=== PATIENT | female | born 1975 | race Caucasian/White ===

== ENCOUNTER 2020-07-28 20:31 | Emergency (ER) | payer OTHER, SELFPAY ==
--- NOTE | ~2020-07-28 | CT_ITS ---
EXAMINATION: CT abdomen pelvis w con DATE: 07/28/2020 21:53 INDICATION: Lower abdomen pain. TECHNIQUE: Computed tomography (CT) of the abdomen and pelvis was performed with 100 cc Omnipaque 350 intravenous contrast. The dose-length product was 711.82 mGy-cm. Automated exposure control and iterative reconstruction technique were employed. COMPARISON: No prior studies for comparison. FINDINGS: Lung bases are unremarkable. Heart size normal. Small hiatal hernia. No significant pleural or pericardial effusion. No lymphadenopathy. There is a complex heterogeneously enhancing exophytic right renal mass measuring 3.3 cm maximum dime nsion. There are subcentimeter hypodensities in the right kidney, most likely benign cysts. Left kidn ey within normal limits. The liver, spleen, pancreas, and left adrenal gland are unremarkable. There is a heterogeneous 3 cm r ight adrenal mass. No free air or free fluid. No osteolytic or osteoblastic lesions. There is asymmet nicole soft tissue in the left breast which is incompletely visualized. IMPRESSION: 1. Complex heterogeneously enhancing right renal mass measuring 3.3 cm, compatible with renal cell ca rcinoma until proven otherwise. 2: 13 cm right adrenal mass which may represent an atypical adenoma or metastatic disease. Recommend correlation with MRI. 3: Asymmetric soft tissue in the left breast, only partially visualized. Correlation with diagnostic mammogram and possible ultrasound recommended. Reviewed, dictated and finalized at location A. RGROUND FOREMAN IMPRESSION: 1. Complex heterogeneously enhancing right renal mass measuring 3.3 cm, compati ble with renal cell carcinoma until proven otherwise. 2: 13 cm right adrenal mass which may represent an atypical adenoma or metasta tic disease. Recommend correlation with MRI. 3: Asymmetric soft tissue in the left breast, only partially visualized. Corre lation with diagnostic mammogram and possible ultrasound recommended.
[2020-07-28 20:34] VITALS: BP 138/81; PULSE 88; RESP 16; TEMP 36.3; O2SAT 100
[2020-07-28 20:47] VITALS: BP 116/72; PULSE 97; RESP 16; O2SAT 98
--- NOTE | 2020-07-28 20:52 | ED.ABDPAIN ---
HPI - Abdominal Pain General Chief Complaint: Abdominal Pain Stated Complaint: Lower abd pain Time Seen by Provider: 07/28/20 20:38 Source: patient Mode of arrival: ambulatory Limitations: no limitations History of Present Illness HPI narrative: Patient is a 45-year-old female complaining of lower abdominal pain, 2 out of 10, sharp, nonradiating started 2 days ago. Patient denies any chest pain, shortness of breath, nausea, vomiting, diarrhea, urinary symptoms, fever or chills. Related Data Allergies Allergy/AdvReac Type Severity Reaction Status Date / Time erythromycin base Allergy Mild Vomiting Verified 07/28/20 20:33 Review of Systems Review of Systems: All systems reviewed & are unremarkable except as noted in HPI and below Constitutional: Constitutional: Denies body ache(s), Denies chills, Denies excessive sweating, Denies fatigue, Denies fever(s), Denies headache(s), Denies lethargy, Denies malaise, Denies weakness and Denies weight loss Eyes: Eyes: Denies blurry vision, Denies change in vision and Denies loss of vision ENT: Denies dizziness, Denies ear discharge, Denies headache(s), Denies lip swelling, Denies epistaxis, Denies nasal congestion, Denies neck pain, Denies throat swelling and Denies tongue swelling Cardiovascular: Cardiovascular: Denies chest pain, Denies chest pain at rest, Denies chest pain with activity, Denies diaphoresis, Denies rapid heart rate, Denies edema, Denies irregular heart rhythm, Denies lightheadedness, Denies palpitations, Denies dyspnea and Denies dyspnea on exertion Respiratory: Respiratory: Denies chest congestion, Denies cough, Denies hemoptysis, Denies dyspnea and Denies dyspnea on exertion Gastrointestinal: Gastrointestinal: Denies melena, Denies hematochezia, Denies diarrhea, Denies nausea, Denies vomiting and Denies hematemesis Musculoskeletal: Musculoskeletal: Denies abnormal gait, Denies deformity, Denies joint swelling, Denies limited range of motion, Denies neck pain and Denies numbness Neurologic: Denies Abnormal speech present, Denies abnormal gait, Denies confusion, Denies dizziness, Denies headache(s), Denies focal weakness, Denies loss of vision, Denies numbness, Denies Other visual disturbances, Denies Sensory deficit (Neuro) and Denies weakness Psychiatric: Psychiatric: Denies confusion, Denies depression, Denies auditory hallucinations, Denies homicidal ideation and Denies suicidal ideation Endocrine: Endocrine: Denies cold intolerance, Denies excessive sweating, Denies fatigue, Denies heat intolerance and Denies palpitations Hematologic/Lymphatic: Hematologic/Lymphatic: Denies easy bleeding and Denies easy bruising Allergic/Immunologic: Allergic/Immunologic: Denies lip swelling, Denies throat swelling and Denies tongue swelling PMFSH Family History Family History Father Hypertension Mother Patient's mother is in good health Other Cerebrovascular accident Diabetes mellitus Family history of arthritis Family history of cardiovascular disease Social History Social History Smoking status: Never smoker Second hand tobacco smoke exposure: No Alcohol intake: current Substance use: never Gender identity (if verbalized by the patient): Female Exam Const: General: cooperative, healthy appearing, comfortable, no acute distress, well developed, alert and awake; No confusion Orientation/consciousness: oriented to person, oriented to place, oriented to time, patient oriented x3 and No confusion Limitations: no limitations HENMT: Head: normal to inspection, normocephalic and atraumatic Ears: hearing grossly normal bilaterally, TM normal on the right and TM normal on the left General nose exam: Normal external nose present, Normal nares present and No nasal discharge present Face and sinus: normal facial exam Mouth: Yes Normal oral and palatal muc
[2020-07-28 20:57] LABS: Basophils Absolute Auto 0.1 K/mm3 (0.0-0.1); Basophils Percent Auto 0.6 % (0.2-1.2); Eosinophils Absolute Auto 0.2 K/mm3 (0-0.3); Eosinophils Percent Auto 2.1 % (0-4.4); Hematocrit 39.5 % (37.0-47.0); Hemoglobin 13.3 g/dL (12.0-15.0); Immature Granulocyte Absolute 0.03 K/mm3 (0.00-0.031); Immature Granulocyte Percent A 0.3 % (0-0.5); Lymphocytes Absolute Auto 2.21 K/mm3 (0.9-3.2); Lymphocytes Percent Auto 22.7 % (18.3-44.2); Mean Corpuscular HGB Conc 33.7 g/dl (32-36); Mean Corpuscular Hemoglobin 31.7 pg (26-34); Mean Corpuscular Volume 94.3 fl (80-100); Mean Platelet Volume 10.5 fl (7.4-10.4); Monocytes Absolute Auto 0.8 K/mm3 (0.1-0.6); Monocytes Percent Auto 8.2 % (2.6-8.5); Neutrophils Absolute Auto 6.4 K/mm3 (1.3-6.7); Neutrophils Percent Auto 66.1 % (45.5-73.1); Platelet Count Result 239 k/mm3 (150-375); Red Blood Count 4.19 M/mm3 (4.2-5.4); Red Cell Distribution Width 12.5 % (11.5-14.5); White Blood Count 9.7 K/mm3 (4.5-10.0)
[2020-07-28 21:12] LABS: Add Urine Microscopic? YES; Appearance Urine Clear (Clear); Bacteria Urine Trace /hpf; Bilirubin Urine Negative (Negative); Blood Urine 1+ (Negative); Color Urine Yellow (Yellow); Glucose Urine UA Negative (Negative); Ketones Urine Negative (Negative); Leukocyte Esterase Ur Negative LEU/UL (Negative); Mucus Urine Rare /lpf; Nitrate Urine Negative (Negative); Protein Urine Negative (Negative); RBC Urine 0-2 /hpf (0-2); Specific Grav Ur 1.021 (1.001-1.035); Squamous Epithelial Cell Urine Moderate /hpf (Few); Urobilinogen Urine Negative mg/dL (<2.0); WBC Urine 0-3 /hpf
[2020-07-28 21:28] VITALS: BP 115/73; PULSE 83; RESP 16; O2SAT 98
[2020-07-28 21:37] LABS: Alanine Aminotransferase 16 U/L (4-35); Albumin Level 3.9 g/dL (3.5-5.1); Alkaline Phosphatase 60 U/L (38-126); Anion Gap 5 mmol/L (8-16); Aspartate Amino Transferase 20 U/L (14-36); Bilirubin,Total 0.5 mg/dL (0.2-1.3); Blood Urea Nitrogen 18 mg/dL (7-17); Calcium 8.7 mg/dL (8.4-10.2); Carbon Dioxide 27 mmol/L (22-30); Chloride 107 mmol/L (98-107); Estimated CRCL calculation 70 ml/min; Estimated Glomerular Filt Rate > 60; Glucose 98 mg/dL (65-105); Lipase 248 U/L (23-300); Potassium 3.9 mmol/L (3.4-5.0); Sodium 139 mmol/L (137-145)
[2020-07-28 22:32] VITALS: BP 97/63; PULSE 83; RESP 16; O2SAT 97
[2020-07-28] MEDS: HYDROcodone/acetaminophen (*CRX) 5-325 MG TABLET 2 TAB PO (23:16)
[2020-07-28 23:27] VITALS: BP 111/72; PULSE 97; RESP 16; O2SAT 99
[2020-07-28 23:31] VITALS: TEMP 36.3
== END 2020-07-28 23:31 | disposition home or self-care (01) ==
PROVIDERS: Emergency Provider Emergency Medicine; PCP Internal Medicine
DX: N28.89 Other specified disorders of kidney and ureter (principal); E27.8 Other specified disorders of adrenal gland
CPT/HCPCS: 36415; 74177; 80053; 81001; 83690; 85025; 99284; A9270; Q9967

== ENCOUNTER → 2020-08-10 08:23 | Outpatient (CLI) | payer OTHER, SELFPAY ==
--- NOTE | ~2020-08-10 | CT_ITS ---
EXAMINATION: CT diagnostic chest w con DATE: 08/10/2020 10:25 INDICATION: Right kidney mass TECHNIQUE: Transaxial computed tomographic images of the chest were obtained after the administration of 75 cc of Omnipaque 350 intravenous contrast. The dose-length product (DLP) was 271.11 mGy-cm. Ite rative reconstruction was used. COMPARISON: None FINDINGS: The lungs are free of acute opacities. There is no pleural effusion or pneumothorax. A 4 mm lymph node is noted in the left major fissure. No pathologically enlarged thoracic lymph nodes are i dentified. The heart size is normal. There is mild thoracic spondylosis. IMPRESSION: 1. No evidence of thoracic metastatic disease. Reviewed, dictated and finalized at location A. AL C DEVELOPER
--- NOTE | ~2020-08-10 | MR_ITS ---
EXAMINATION: MR pelvis wo/w con INDICATION: Right kidney mass, pelvic pain TECHNIQUE: Coronal SSFSE ARC, Coronal, Axial, and Sagittal T2 FRFSE small [id number], Coronal 2D F IESTA FatSat, Axial SSFSE BH ARC, Axial 3D DualEcho BH, Axial STIR, Axial DWI b=500, postcontrast Axi al LAVA ARC COMPARISON: CT, 07/28/2020 CONTRAST: Multihance, 17 cc FINDINGS: The known right kidney mass is described on the abdominal MRI. There are changes of hystere ctomy. Cysts of the ovaries measure up to 2.0 cm on the right. There are no dilated loops of bowel. N o pathologically enlarged pelvic lymph nodes are identified. There is trace free fluid in the pelvis. IMPRESSION: 1. No MRI correlate for the patient's symptoms. Reviewed, dictated and finalized at location A. ING ANALYST
--- NOTE | ~2020-08-10 | MR_ITS ---
EXAMINATION: MR abdomen wo/w con INDICATION: Right kidney mass TECHNIQUE: Coronal SSFSE ARC, WATER:coronal LAVA-FLEX, Coronal 2D FIESTA FatSat, Axial SSFSE BH ARC, Axial 3D DualEcho BH, Axial SSFSE-IR, Axial DWI b=500, Axial 2D FIESTA FatSat, pre and dynamic postco ntrast Axial LAVA ARC, postcontrast Coronal In and Opposed phase LAVA FLEX COMPARISON: CT, 07/28/2020 CONTRAST: Multihance, 17 cc FINDINGS: There is a 3.7 x 3.3 cm exophytic complex cystic and solid mass of the right mid kidney. Th e solid components demonstrate enhancement after contrast administration. There is a 9 mm T1 hypointe nse area in the lower pole of the right kidney without enhancement after contrast administration, con sistent with a hemorrhagic cyst. The liver, spleen, pancreas, gallbladder, and left adrenal gland are normal. There is a 2 cm mass of the right adrenal gland which demonstrates loss of signal intensity on opposed phase imaging, consistent with an adenoma. There are no pathologically enlarged abdominal lymph nodes. No dilated loops of bowel are present. There is a linear T2 hypointense area of the left breast without enhancement. IMPRESSION: 1. Right kidney mass consistent with renal cell carcinoma. No evidence of metastatic disease. 2. Right adrenal mass with imaging features consistent with an adenoma. 3. Changes in the left breast most consistent with history of prior excisional biopsy. Recommend clin ical correlation with surgical and mammographic history. Reviewed, dictated and finalized at location A. ENTIONS RESERVATIONIST IMPRESSION: 1. Right kidney mass consistent with renal cell carcinoma. No evidence of metas tatic disease. 2. Right adrenal mass with imaging features consistent with an adenoma. 3. Changes in the left breast most consistent with history of prior excisional biopsy. Recommend clinical correlation with surgical and mammographic history.
[2020-08-10 08:53] LABS: Estimated Glomerular Filt Rate > 60
== END ==
PROVIDERS: PCP Internal Medicine; Visit Provider Internal Medicine Hematology & Oncology
DX: C64.1 Malignant neoplasm of right kidney, except renal pelvis (principal)
CPT/HCPCS: 71260; 72197; 74183; A9577; Q9967

== ENCOUNTER → 2021-05-03 15:15 | Outpatient (CLI) | payer OTHER, SELFPAY ==
--- NOTE | ~2021-05-03 | MM_ITS ---
EXAMINATION: MM screening [facility] w [facility] HISTORY: Screening mammogram TECHNIQUE: Craniocaudal and mediolateral oblique 3-D tomosynthesis images were obtained and synthetic 2-D images were generated. CAD analysis was submitted and interpreted. COMPARISON: 01/27/2020, 01/13/2020, 02/10/2018 bilateral screening mammogram examinations BREAST PARENCHYMAL COMPOSITION: There are scattered areas of fibroglandular density. FINDINGS: Stable fibroglandular asymmetry. Scattered bilateral benign calcifications are again noted. . There is no evidence of suspicious mass, calcification, or architectural distortion to suggest nilson gnancy in either breast. There has been no suspicious interval change. IMPRESSION: 1. No mammographic evidence of malignancy. 2. Recommend routine screening mammography in one year. BI-RADS Category 2: Benign finding(s). Reviewed, dictated and finalized at location A. 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
== END ==
PROVIDERS: Visit Provider Obstetrics & Gynecology
DX: Z12.31 Encounter for screening mammogram for malignant neoplasm of breast (principal)
CPT/HCPCS: 77063; 77067

== ENCOUNTER 2022-01-31 10:58 | Outpatient (CLI) | payer OTHER, SELFPAY ==
[2022-01-31 11:43] LABS: Influenza Control Positive
== END 2022-01-31 10:59 | disposition home or self-care (01) ==
PROVIDERS: Visit Provider Internal Medicine
DX: B34.9 Viral infection, unspecified (principal)
CPT/HCPCS: 87804

== ENCOUNTER 2022-02-01 20:04 | Emergency (ER) | payer OTHER, SELFPAY ==
[2022-02-01 20:05] VITALS: BP 133/86; PULSE 94; RESP 20; TEMP 36.4; O2SAT 100
--- NOTE | 2022-02-01 20:36 | ED.GENADULT ---
HPI - General Adult General Chief complaint: Extremity Injury, Lower Stated complaint: RLE swelling and rash Time Seen by Provider: 02/01/22 20:14 History of Present Illness HPI narrative: This is a 38-year-old female presenting to ED with chief complaint of lower extremity swelling. patient had URI symptoms earlier in the week started Saturday. These include headache fever and fatigue. They are essentially resolved by Saturday. However on Saturday she developed a rash on her leg with some swelling. It is not painful or itchy. Patient has a history of kidney and adrenal gland cancer. Those were removed in 2019. She has a family history of blood clots on her mother's side. Patient denies any recent trauma, surgery, immobilization. She denies any complaints of chest pain or difficulty breathing. Patient has taken multiple COVID tests at home that were negative. Related Data Allergies Allergy/AdvReac Type Severity Reaction Status Date / Time erythromycin base Allergy Mild Vomiting Verified 02/01/22 20:08 Review of Systems Review of Systems: CONSTITUTIONAL: Denies night sweats. EYES: No eye pain ENT: Denies rhinorrhea CARDIOVASCULAR: Denies palpitations RESPIRATORY: Denies hemoptysis GASTROINTESTINAL: Denies hematemesis GENITOURINARY: Denies hematuria. SKIN: Denies rash MUSCULOSKELETAL: Denies myalgia. NEUROLOGIC: Denies weakness. 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 Endometriosis Fibroid uterus In vitro fertilization 10/26/09 12/29/10 Infertility Surgical History Surgical History History of breast lump/mass excision 10/28/2007 lt breast mass excision--fibroadenoma History of 07/15/10 primary--arrest of dilation 08/21/11 rpt c/s w/btl--endometriotic implants, peritoneum and lt fallopian tube History of colposcopy with cervical biopsy 05/28/02 cervicitis--benign History of endometrial ablation 05/23/17 hscope d&c/novasure ablation--proliferative weak endometrium, benign ecto/endocervical tissues History of hysteroscopy 05/23/17 hscope d&c/novasure ablation--proliferative weak endometrium, benign ecto/endocervical tissues History of right knee surgery 198608/22/13 meniscus tear repair History of robot-assisted laparoscopic hysterectomy 04/14/20 TL[facility]--dysmenorrhea, failed endometrial ablation, adhesions Family History Family History Father Hypertension Cerebrovascular accident Heart disease Diabetes mellitus Mother Patient's mother is in good health Grandparent Lung cancer paternal grandfather Other Family history of arthritis Family history of cardiovascular disease Social History Social History Smoking status: Never smoker Second hand tobacco smoke exposure: No Alcohol intake: current Alcohol use details: socially Substance use: never Substance use type: does not use Gender identity (if verbalized by the patient): Female Exam Narrative: APPEARANCE: No apparent distress. Head atraumatic. EYES: PERRLA/EOMI, NOSE: Normal no drainage NECK: Supple, Trachea midline RESPIRATORY: CTAB, No increased work of breathing. CARDIOVASCULAR: S1S2 appreciated ABDOMINAL: Soft, nontender, nondistended, MUSCULOSKELETAl: Patient has swelling of the right lower extremity greater than the left. She has a erythematous rash extending from the lower suggs around the calf on the lateral aspect. Is not painful. It is not itchy. Pulses are +2 in the TP/PD distribution. Cap refill is less than 2 seconds. Sensation light touch is intact. NEURO: Alert. Moving 4/4 extremities SKIN:: Warm, dry. Normal color PSYCHIATRIC: Normal a
[2022-02-01] MEDS: CEPHALEXIN 500 MG CAPSULE PO (20:46)
[2022-02-01] MEDS: ENOXAPARIN 100 MG/ML SYRINGE 90 MG SUB-Q (20:47)
== END 2022-02-01 21:22 | disposition home or self-care (01) ==
LOC: ANHED 21:17
PROVIDERS: Emergency Provider Emergency Medicine; PCP Internal Medicine
DX: L03.115 Cellulitis of right lower limb (principal); I82.401 Acute embolism and thrombosis of unspecified deep veins of right lower extremity; Z85.528 Personal history of other malignant neoplasm of kidney; Z85.858 Personal history of malignant neoplasm of other endocrine glands; Z90.5 Acquired absence of kidney; Z90.710 Acquired absence of both cervix and uterus; Z90.89 Acquired absence of other organs
CPT/HCPCS: 96372; 99283; A9270; J1650

== ENCOUNTER 2022-02-02 07:27 | Outpatient (CLI) | payer OTHER, SELFPAY ==
--- NOTE | ~2022-02-02 | US_ITS ---
EXAMINATION: US venous doppler [facility] DATE: 02/02/2022 08:40 INDICATION: Lower limb swelling TECHNIQUE: Davis scale images without and with compression and Doppler images of the bilateral lower e xtremity veins were obtained. COMPARISON: None FINDINGS: The right common femoral vein, profunda femoral vein, femoral vein, popliteal vein, peroneal trunk, p osterior tibial veins, and greater saphenous vein are patent. The left common femoral vein, profunda femoral vein, femoral vein, popliteal vein, peroneal trunk, po sterior tibial veins, and greater saphenous vein are patent. IMPRESSION: 1. Patent bilateral lower extremity veins. No evidence of deep venous thrombosis. Reviewed, dictated and finalized at location A. IMPRESSION: 1. Patent bilateral lower extremity veins. No evidence of deep venous thrombosi s.
== END 2022-02-02 07:28 | disposition home or self-care (01) ==
PROVIDERS: PCP Internal Medicine; Visit Provider Emergency Medicine
DX: S89.91XA Unspecified injury of right lower leg, initial encounter (principal); X58.XXXA Exposure to other specified factors, initial encounter; M79.89 Other specified soft tissue disorders
CPT/HCPCS: 93970

== ENCOUNTER → 2022-05-22 15:16 | Outpatient (CLI) | payer OTHER, SELFPAY ==
--- NOTE | ~2022-05-22 | MM_ITS ---
EXAMINATION: MM screening [facility] BI w [facility] HISTORY: Screening mammogram TECHNIQUE: Craniocaudal and mediolateral oblique 3-D tomosynthesis images were obtained and synthetic 2-D images were generated. CAD analysis was submitted and interpreted. COMPARISON: 05/03/2021, 01/27/2020, 01/13/2020, 02/18/2018 BREAST PARENCHYMAL COMPOSITION: There are scattered areas of fibroglandular density. FINDINGS: There is stable focal asymmetry in the upper outer quadrant of the left breast. No suspicio us mass, calcification, or architectural distortion are identified in either breast to suggest malign job. There has been no suspicious interval change. IMPRESSION: 1. No mammographic evidence of malignancy. 2. Recommend routine screening mammography in one year. BI-RADS Category 2: Benign finding(s). Reviewed, dictated and finalized at location A. D CREW CHIEF
== END ==
PROVIDERS: PCP Internal Medicine; Visit Provider Obstetrics & Gynecology
DX: Z12.31 Encounter for screening mammogram for malignant neoplasm of breast (principal)
CPT/HCPCS: 77063; 77067

== ENCOUNTER 2022-05-28 00:36 | Day surgery (SDC) | payer OTHER, SELFPAY ==
[2022-05-11 13:25] VITALS: BMI 35.5
[2022-05-28 07:12] VITALS: BP 113/80; PULSE 85; RESP 18; TEMP 36.4; O2SAT 100
[2022-05-28] MEDS: LACTATED RINGERS 1,000 ML 150 ML IV CONT (07:22)
--- NOTE | 2022-05-28 07:33 | WPDANESEPPF ---
Anes - Initial Pre Proc Eval Procedure: Operation Date: 05/28/22 08:00 Proposed Procedures p Screening Colonoscopy - Karl Ashraf MD Date/Time: 05/28/22 07:33 Surgeon: Karl Ashraf MD Pre Op Diagnosis: neoplasm screening Patient Data Age: 47 Gender: F Height: 1.6 m Weight: 96.7 kg Last Vital Signs Temp 36.4 C 05/28/22 07:12 Pulse 85 05/28/22 07:12 Resp 18 05/28/22 07:12 BP 113/80 05/28/22 07:12 Pulse Ox 100 05/28/22 07:12 O2 Del Method Room Air 05/28/22 07:12 Allergies Allergy/AdvReac Type Severity Reaction Status Date / Time erythromycin base Allergy Mild Vomiting Verified 05/28/22 07:11 Home Medications Medication Instructions Recorded Confirmed Type lisinopril 10 mg tablet 10 mg PO DAILY #90 tabs 12/11/21 05/11/22 Rx multivitamin with minerals-folic 1 tablet PO DAILY 05/11/22 05/11/22 History acid 0.4 mg tablet Patient hx anesthesia problems: none Family hx anesthesia problems: none Results Review: All pre-operative results and documents have been reviewed as part of the pre-operative evaluation. [facility] Past Medical History Medical History Abnormal Pap smear of cervix hx of lgsil/ ascus +hpv Breast mass, left 10/2007 fibroadenoma Endometriosis Fibroid uterus In vitro fertilization 10/26/09 12/29/10 Infertility Surgical History Surgical History History of breast lump/mass excision 10/28/2007 lt breast mass excision--fibroadenoma History of 07/15/10 primary--arrest of dilation 08/21/11 rpt c/s w/btl--endometriotic implants, peritoneum and lt fallopian tube History of colposcopy with cervical biopsy 05/28/02 cervicitis--benign History of endometrial ablation 05/23/17 hscope d&c/novasure ablation--proliferative weak endometrium, benign ecto/endocervical tissues History of hysteroscopy 05/23/17 hscope d&c/novasure ablation--proliferative weak endometrium, benign ecto/endocervical tissues History of right knee surgery 198608/22/13 meniscus tear repair History of robot-assisted laparoscopic hysterectomy 04/14/20 TLH--dysmenorrhea, failed endometrial ablation, adhesions Family History Family History Father Hypertension Cerebrovascular accident Heart disease Diabetes mellitus Mother Patient's mother is in good health Grandparent Lung cancer paternal grandfather Other Family history of arthritis Family history of cardiovascular disease Social History Social History Smoking status: Never smoker Second hand tobacco smoke exposure: No Alcohol intake: current Drinks per week: 6 Alcohol use details: socially Substance use: never Substance use type: does not use Living arrangements: with family Gender identity (if verbalized by the patient): Female Spiritual care concerns: No Anes - Eval Final PreProcedure Day of Procedure 05/28/22 07:33 Patient weight: obese Heart: regular rate and rhythm Lungs: clear to auscultation Airway: Mallampati scale class II and special considerations retrognathia Neurological: alert and oriented Last oral intake: >/= 8 hours Emergent: no Anesthetic plan: proceed Anesthesia type and monitoring: general GIVS and standard monitoring Results Review: All pre-operative results and documents have been reviewed as part of the pre-operative evaluation. Informed Consent: The patient's anesthetic plan and its attendant risks and benefits were discussed with the patient/family/POA. Questions were solicited and answers provided to the satisfaction of the patient/family/POA.
--- NOTE | 2022-05-28 07:49 | PM.HPGS ---
History of Present Illness History of Present Illness Consent: Risks, benefits, and alternatives have been discussed and questions answered. Patient agrees to proceed with procedure. Chief complaint: neoplasm screening Narrative: Myriam Bloom is a 47 year old female here for first screening colonoscopy Review of Systems Constitutional: Constitutional: Denies headache(s) and Denies weakness Eyes: Eyes: Denies blurry vision ENT: Reports Normal hearing present, Denies headache(s) and Denies neck pain Cardiovascular: Cardiovascular: Denies chest pain and Denies dyspnea Respiratory: Respiratory: Denies dyspnea Gastrointestinal: Gastrointestinal: Reports no additional gastrointestinal complaints Genitourinary: Genitourinary: Denies dysuria Musculoskeletal: Musculoskeletal: Denies neck pain Integumentary/Breasts: Skin/Breast: Denies dry skin Neurologic: Reports Normal hearing present, Denies headache(s) and Denies weakness Psychiatric: Psychiatric: Denies anxiety Endocrine: Endocrine: Denies change in body appearance Hematologic/Lymphatic: Hematologic/Lymphatic: Denies easy bleeding Allergic/Immunologic: Allergic/Immunologic: Denies urticaria PMFSH Past Medical History Medical History (Updated 05/28/22 @ 07:49 by Karl Ashraf MD) Abnormal Pap smear of cervix hx of lgsil/ ascus +hpv Breast mass, left 10/2007 fibroadenoma Colon cancer screening Endometriosis Fibroid uterus In vitro fertilization 10/26/09 12/29/10 Infertility Surgical History Surgical History History of breast lump/mass excision 10/28/2007 lt breast mass excision--fibroadenoma History of 07/15/10 primary--arrest of dilation 08/21/11 rpt c/s w/btl--endometriotic implants, peritoneum and lt fallopian tube History of colposcopy with cervical biopsy 05/28/02 cervicitis--benign History of endometrial ablation 05/23/17 hscope d&c/novasure ablation--proliferative weak endometrium, benign ecto/endocervical tissues History of hysteroscopy 05/23/17 hscope d&c/novasure ablation--proliferative weak endometrium, benign ecto/endocervical tissues History of right knee surgery 1987 08/22/13 meniscus tear repair History of robot-assisted laparoscopic hysterectomy 04/14/20 RA TLH--dysmenorrhea, failed endometrial ablation, adhesions Family History Family History Father Hypertension Cerebrovascular accident Heart disease Diabetes mellitus Mother Patient's mother is in good health Grandparent Lung cancer paternal grandfather Other Family history of arthritis Family history of cardiovascular disease Social History Social History Smoking status: Never smoker Second hand tobacco smoke exposure: No Alcohol intake: current Drinks per week: 6 Alcohol use details: socially Substance use: never Substance use type: does not use Living arrangements: with family Gender identity (if verbalized by the patient): Female Spiritual care concerns: No Meds Home Medications and Allergies Home Medications Medication Instructions Recorded Confirmed Type lisinopril 10 mg tablet 10 mg PO DAILY #90 tabs 12/11/21 05/11/22 Rx multivitamin with minerals-folic 1 tablet PO DAILY 05/11/22 05/11/22 History acid 0.4 mg tablet Allergies Allergy/AdvReac Type Severity Reaction Status Date / Time erythromycin base Allergy Mild Vomiting Verified 05/28/22 07:11 Vital Signs Vital Signs - 24 hr 05/28/22 07:12 Temperature 97.6 F Pulse Rate 85 Respiratory Rate 18 Blood Pressure 113/80 Pulse Oximetry 100 Oxygen Delivery Room Air Exam Const: General: comfortable and no acute distress HENMT: Face/Nose/Sinus: Normal nares present Eyes: General: appearance normal, both eyes and all related structures Neck:
[2022-05-28 08:08] VITALS: BP 128/76; PULSE 67; RESP 20; O2SAT 100
[2022-05-28 08:18] VITALS: BP 117/78; PULSE 70; RESP 24; O2SAT 97
[2022-05-28 08:28] VITALS: BP 124/79; PULSE 73; RESP 100; O2SAT 72
== END 2022-05-28 08:40 | disposition home or self-care (01) ==
PROVIDERS: PCP Internal Medicine; Visit Provider Internal Medicine Gastroenterology
PROC: 0DJD8ZZ Inspection of Lower Intestinal Tract, Via Natural or Artificial Opening Endoscopic (ICD-10-PCS; CPT 45378; principal; 2022-05-28 08:00)
DX: Z12.11 Encounter for screening for malignant neoplasm of colon (principal); K64.8 Other hemorrhoids; E66.9 Obesity, unspecified; Z68.37 Body mass index [BMI] 37.0-37.9, adult
CPT/HCPCS: 45378; J2704; J7120

== ENCOUNTER → 2022-07-19 07:43 | Outpatient (CLI) | payer OTHER, SELFPAY ==
--- NOTE | ~2022-07-19 | MR_ITS ---
EXAMINATION: MR foot RT wo con DATE: 07/19/2022 08:18 INDICATION: Medial right hindfoot pain. Talotarsal instability. TECHNIQUE: Magnetic resonance imaging (MRI) of the right mid/hindfoot and ankle was performed without intravenous contrast. Sequences included sagittal T1-weighted FSE, sagittal fluid sensitive FSE STIR , coronal PD-weighted FS FSE, coronal T1-weighted FSE, axial PD-weighted FS FSE, and axial PD-weighte d FSE. COMPARISON: None. FINDINGS: Medial ankle ligaments: Small heterotopic ossicles along the deep deltoid ligament likely sequela of chronic ankle sprain. Th ere is thickening of the superficial deltoid ligament particularly anteriorly along with thickening a nd mild increased signal of the navicular side of the superomedial component of the spring ligament c omplex without surrounding edema consistent with scarring related to additional chronic sprains. The medial plantar oblique and infra plantar lateral components of the spring ligament complex are normal . Lateral ankle ligaments: The anterior and posterior inferior tibiofibular ligaments are normal. The anterior talofibular ligam ent appears attenuated without surrounding edema consistent with sequela prior partial tear. Scarring consistent with additional chronic sprain of the calcaneofibular ligament which appears thickened. T he posterior talofibular ligaments is normal. Tendons: Achilles tendon is normal. Small amount of fluid in the peroneal tendon sheath along side the normal- appearing peroneus longus and brevis tendons consistent with mild tenosynovitis. There is mild tendin opathy and longitudinal split tearing of the tibialis posterior tendon at the level of the retromalle olar groove. The flexor digitorum longus and flexor hallucis longus tendons are normal. The tibialis anterior and extensor hallucis longus and extensor digitorum longus tendons are normal. Plantar fascia: Very small plantar calcaneal spur at the calcaneal origin of the normal plantar aponeurosis. Bones/other: Bone alignment is normal. No fracture or pathologic marrow replacing process. Mild polyarticular oste oarthritis at the tibiotalar, talonavicular, calcaneocuboid and multiple joints in the midfoot. There is low signal intensity likely eburnation underlying portion of the articular surface of the talar h ead and at both sides of the calcaneocuboid articulation. No erosions to suggest inflammatory arthrit is. Physiologic amount fluid in the joint spaces. IMPRESSION: 1. Chronic medial and lateral ankle sprains. 2. Mild tendinopathy and longitudinal split tearing of the tibialis posterior tendon. 3. Mild peroneal tenosynovitis without evident tendinopathy or tendon tear. 4. Mild polyarticular osteoarthritis at the right ankle, mid and hindfoot. Reviewed, dictated and finalized at location L. [facility] [employer] [employer] IMPRESSION: 1. Chronic medial and lateral ankle sprains. 2. Mild tendinopathy and longitudinal split tearing of the tibialis posterior t endon. 3. Mild peroneal tenosynovitis without evident tendinopathy or tendon tear. 4. Mild polyarticular osteoarthritis at the right ankle, mid and hindfoot.
== END ==
PROVIDERS: PCP Internal Medicine; Visit Provider Podiatrist Foot & Ankle Surgery
DX: S93.491A Sprain of other ligament of right ankle, initial encounter (principal); M76.821 Posterior tibial tendinitis, right leg; M65.871 Other synovitis and tenosynovitis, right ankle and foot; M15.9 Polyosteoarthritis, unspecified; M25.374 Other instability, right foot; X58.XXXA Exposure to other specified factors, initial encounter
CPT/HCPCS: 73718

== ENCOUNTER 2022-09-28 09:56 | Outpatient (CLI) | payer OTHER, SELFPAY ==
--- NOTE | 2022-09-28 10:10 | ECG_ITS ---
Measurements Intervals [place] Rate: 73 P: 39 MO: 174 QRS: 11 QRSD: 104 T: 15 QT: 375 QTc: 416 Interpretive Statements SINUS RHYTHM BASELINE ARTIFACT LOW QRS VOLTAGE IN PRECORDIAL LEADS BORDERLINE ECG NO PREVIOUS ECG AVAILABLE FOR COMPARISON Electronically Signed On 09-29-2022 14:53:47 CDT by Clement Johnson M.D.
== END 2022-09-28 09:57 | disposition home or self-care (01) ==
LOC: ANHSURGERY 09:59
PROVIDERS: PCP Internal Medicine; Visit Provider Podiatrist Foot & Ankle Surgery
DX: I10 Essential (primary) hypertension (principal); Z01.818 Encounter for other preprocedural examination
CPT/HCPCS: 93005

== ENCOUNTER 2022-10-05 01:10 | Day surgery (SDC) | payer OTHER, SELFPAY ==
[2022-09-27 15:34] VITALS: BMI 37.2
--- NOTE | 2022-09-27 15:39 | PC.NURSE ---
Report to the Outpatient Waiting Room, entrance under the green pavilion located off [facility], at time 6:00 on date 10/05/22. Planned Procedure Time: 7:30. Time changes happen often and if your time is changed the preop area will call you the afternoon before. - You and your visitor will be asked to self-screen and do not enter if you have any COVID symptoms. - A mask is optional within the hospital at this time. Patients may have clear liquids (water, carbonated beverages, clear teas, apple juice) until 3 hours prior to surgery with a maximum of 20 ounces. - No food from midnight until time of surgery Take the following medications with a SIP of water the morning of surgery: NONE DO NOT STOP ANY OF YOUR OTHER PRESCRIPTION MEDICATIONS PRIOR TO SURGERY EXCEPT THE FOLLOWING Medications to discontinue per physician: VITAMINS/SUPPLEMENTS Date to take last dose: 10/01/22 Please no make-up, nail wallisian, hairspray, perfume, deodorant, or body powder the day of surgery. No jewelry (including any body piercings) or valuables the day of surgery, leave them at home. Please take a shower or bath the night before, or the morning of, surgery with an antibacterial soap. Wear comfortable, loose fitting clothing. - Jewelry must be removed prior to entering the operating room. Rings and piercings that are not removed may be cut off. - The hospital will not accept responsibility for valuables. - Please leave all valuables, including medications, at home the day of surgery. If you are going home after surgery, a licensed vacuum truck driver must drive you home. - NO public transportation without another adult if you receive anesthesia. - We recommend that an adult stay with you for 24 hours following discharge. - We also recommend that you do not drive, make important decision, drink alcoholic beverages, or take any drugs that were not prescribed by your health care provider for at least 24 hours after your discharge time. Follow any additional instructions given to you from your surgeon. If you or anyone in your household have experienced Covid symptoms in the past week, please notify your surgeon or the nurse liaison at the phone number below for possible testing. Telephone instructions given to PT - ISABELA SHANKS and asked if any additional questions and then verbalized understanding. Patient advised to call surgeon office or pre surgery nurse liaison [phone] if any additional questions.
--- NOTE | 2022-10-04 09:42 | WPDANESEPPF ---
Anes - Initial Pre Proc Eval Procedure: Operation Date: 10/05/22 07:30 Proposed Procedures p Waddell Calcaneal Osteotomy Right Foot, Flexor Digitorum Longus Tendon Transfer Right Foot, Tendo Achilles Lengthening Right Foot - Gaston Gamble JR, MD Date/Time: 10/04/22 09:42 Surgeon: Gaston Gamble JR, MD Pre Op Diagnosis: Posterior Tibial Tendon Dysfunc Rt Ft Patient Data Age: 47 Gender: F Height: 1.6 m Weight: 95.25 kg Allergies Allergy/AdvReac Type Severity Reaction Status Date / Time erythromycin base Allergy Mild Vomiting Verified 10/05/22 06:33 Home Medications Medication Instructions Recorded Confirmed Type multivitamin with minerals-folic 1 tablet PO DAILY 05/11/22 10/05/22 History acid 0.4 mg tablet lisinopril 10 mg tablet 10 mg PO DAILY #90 tabs 07/01/22 10/05/22 Rx Patient hx anesthesia problems: none Family hx anesthesia problems: none Results Review: All pre-operative results and documents have been reviewed as part of the pre-operative evaluation. [facility] Past Medical History Medical History (Updated 10/04/22 @ 09:43 by David Judge DO) Abnormal Pap smear of cervix hx of lgsil/ ascus +hpv Breast mass, left 10/2007 fibroadenoma Colon cancer screening Endometriosis Fibroid uterus Hx of renal cell cancer Hypertension In vitro fertilization 10/26/09 12/29/10 Infertility Screening breast examination Surgical History Surgical History (Updated 10/04/22 @ 09:43 by David Judge DO) History of breast lump/mass excision 10/28/2007 lt breast mass excision--fibroadenoma History of 07/15/10 primary--arrest of dilation 08/21/11 rpt c/s w/btl--endometriotic implants, peritoneum and lt fallopian tube History of colposcopy with cervical biopsy 05/28/02 cervicitis--benign History of endometrial ablation 05/23/17 hscope d&c/novasure ablation--proliferative weak endometrium, benign ecto/endocervical tissues History of hysteroscopy 05/23/17 hscope d&c/novasure ablation--proliferative weak endometrium, benign ecto/endocervical tissues History of partial nephrectomy History of right knee surgery 1987 08/22/13 meniscus tear repair History of robot-assisted laparoscopic hysterectomy 04/14/20 RA TLH--dysmenorrhea, failed endometrial ablation, adhesions Family History Family History Father Hypertension Cerebrovascular accident Heart disease Diabetes mellitus Mother Patient's mother is in good health Grandparent Lung cancer paternal grandfather Other Family history of arthritis Family history of cardiovascular disease Social History Social History (Updated 09/25/22 @ 15:53 by Caro Owens Vane) Smoking status: Never smoker Second hand tobacco smoke exposure: No Alcohol intake: current Drinks per week: 6 Alcohol use details: socially Substance use: never Substance use type: does not use Living arrangements: with family Gender identity (if verbalized by the patient): Female Sexual Orientation (if Verbalized by the Patient): Straight or Heterosexual Spiritual care concerns: No Anes - Eval Final PreProcedure Day of Procedure 10/04/22 09:42 Patient weight: obese Heart: regular rate and rhythm Lungs: clear to auscultation Airway: Mallampati scale class II Neurological: alert and oriented Last oral intake: >/= 8 hours ASA classification: III Emergent: no Anesthetic plan: proceed Anesthesia type and monitoring: general LMA and standard monitoring Results Review: All pre-operative results and documents have been reviewed as part of the pre-operative evaluation. Informed Consent: The patient's anesthetic plan and its attendant risks and benefits were discussed with the patient/family/POA. Questions were solicited and answers provided to the satisfaction of the patient/family/POA.
--- NOTE | 2022-10-04 09:44 | WPDANESPNB ---
Anes - Peripheral Nerve Block Date/Time: 10/04/22 09:44 I have discussed with the patient/family/POA the placement of a peripheral nerve block for post-operative pain management, including associated risks, benefits, complications, and side effects. Alternative methods of post-operative analgesia were detailed. Questions were solicited and answers provided to the satisfaction of the patient/family/POA. Time-Out: A pre-procedural Time-Out was completed immediately before starting the procedure and confirmed: Patient Identification, Site, Procedure, Patient Position and the Availability of Requisite Equipment. Clinical Indications: Acute post-operative pain management requested by the operative surgeon. Nerve Block Insertion Note Anes-nerve block: posterior fossa sciatic right and adductor canal right Patient position: supine (for adductor canal) and other (right lateral for popliteal) Skin prep: chlorhexidine Needle: 22 gauge, stimulating, insulated echogenic needle. Needle length: 80 mm Technique: nerve stimulation lost at (mA) (for popliteal lost at 0.2) and ultrasound Injectate: bupivacaine 0.5% with epi 5 mcg/ml (20 mL for popliteal, 10 mL for adductor canal (no epi)) Observations: tolerated well Complications: none Procedure start time:: 723 Procedure end time:: 730
[2022-10-05] VITALS (9 sets, daily range): BP systolic 109–117; BP diastolic 63–71; PULSE 76–114; RESP 14–18; TEMP 36.6; O2SAT 93–100
--- NOTE | ~2022-10-05 | XR_ITS ---
EXAMINATION: XR surgery orthopedic DATE: 10/05/2022 10:08 INDICATION: Right posterior tibial tendon dysfunction. TECHNIQUE: 4 intraoperative spot fluoroscopic views of right foot were obtained. I was not present. F luoroscopy exposure time was 65 seconds. COMPARISON: None. FINDINGS: There is an osteotomy of calcaneus with plate and screw fixation. IMPRESSION: 1. Osteotomy of calcaneus with plate and screw fixation. Reviewed, dictated and finalized at location A.
[2022-10-05] MEDS: LACTATED RINGERS 1,000 ML 30 ML IV CONT ×2 (06:44→10:27)
--- NOTE | 2022-10-05 07:13 | WPDHPUPDATE1 ---
History and Physical Update Update Date/Time: 10/05/22 07:13 History and Physical has been reviewed, including an updated exam of the patient. There are NO changes in the patient's condition. Risks, benefits, and alternatives have been discussed and questions answered. Patient agrees to proceed with procedure.
[2022-10-05] MEDS: ceFAZolin 2 GM/D5W 50 ML 2 GM/50 ML BAG IVPB (07:37)
--- NOTE | 2022-10-05 10:43 | W.PM.PROC2 ---
Procedure Note - Detailed Date of Procedure 10/05/22 Pre-op Diagnosis Posterior tibial tendon dysfunction right foot with an adult acquired flat foot deformity Post-op Diagnosis Same Procedure Performed 1. Waddell calcaneal osteotomy right foot 2. Flexor digitorum longus tendon transfer right foot with a resection of the posterior tibial tendon 3. Tendo Achilles lengthening right foot Surgeon Gaston Gamble JR, RADHAM Anesthesia General and Regional Indications Painful right foot Findings Significant degeneration and thickening to the posterior tibial tendon distally near its insertion. Description of Procedure PROCEDURE IN DETAIL: Under mild sedation, the patient was brought into the operating room and placed on the operating table in the supine position. A pneumatic thigh tourniquet was placed about the patient's thigh. Following general anesthesia and a previous popliteal fossa block, the foot and ankle was then scrubbed, prepped, and draped in the usual aseptic manner. An Esmarch bandage was then used to exsanguinate the patient's foot and ankle and the pneumatic thigh tourniquet was then inflated to 300 mmHg. First, I elevated the right leg and made 3 separate incisions, each 1cm and by 1cm, starting 4 cm above the level of the superior calcaneus. I made a vertical stab incision into the Achilles tendon and rotated the blade making a vinny section each time, noting a overall improvement as far as dorsiflexion of the ankle joint with the knee extended. I closed the skin incisions with 4-0 Prolene in simple interrupted suture fashion technique. Attention was directed to the lateral aspect of the hindfoot. An incision was made starting just distal to the lateral malleolus and extending towards the base of the calcaneal cuboid joint. The extensor digitorum brevis muscle was detached partially from its origin to expose the calcaneal cuboid joint and distal lateral aspect of the anterior calcaneus. The peroneal tendons were carefully retracted inferiorly. The periosteal tissue was dissected approximately 1.5cm proximal to the calcaneal cuboid joint. At this point a sagittal saw blade was used to make an osteotomy parallel with the calcaneal joint however 1.5cm proximal to the joint, the medial cortical hinge was preserved. Two [place] pins were placed proximal and distal to the osteotomy site and the osteotomy was opened until the talar head was fully covered by the navicular, noted under fluoroscopy. This also helped slightly plantarflex the first ray. A 10mm Arthrex allograft wedge was tamped into the osteotomy and fixated with a linear 2 hole locking plate from [employer] and a locking and non locking screw. The distractor was removed and transverse plane deformity of the patients flat foot well reduced. Attention was directed to the medial aspect of the hindfoot and ankle a curvilinear incision was made proximal to the medial malleolus extending to the navicular tuberosity. I cauterized all bleeders. I incised the posterior tendon sheath and noted significant degeneration and thickening to the posterior tibial tendon distally near its insertion. I completely excised the distal posterior tibial tendon and sent it for gross and histopathology. I incised the flexor digitorum longus tendon. Next, I harvested the tendon distally and whip stitched the distal 2cm of the transected tendon. I used the internal brace swivel lock system from [employer] to drill a swivel lock into the sustentaculum maggy under fluoroscopic guidance. Next, I drill and inserted the swivel lock anchor into the sustentaculum maggy. Moreover, I made a separate 2cm incision dorsal to the navicular and made a 5.0mm canal for the harvested tendon and pulled the swivel lock from planar to dorsal. I used an Arthrex biotenodesis screw to maintain the position of foot and to maintain the position of the foot in a slightly inverted to slightly rectus position supporting the attenuated spring li
== END 2022-10-05 12:55 | disposition home or self-care (01) ==
PROVIDERS: PCP Internal Medicine; Visit Provider Podiatrist Foot & Ankle Surgery
PROC: (CPT 27650; principal; 2022-10-05 07:30)
DX: M67.873 Other specified disorders of tendon, right ankle and foot (principal); M21.41 Flat foot [pes planus] (acquired), right foot; M76.821 Posterior tibial tendinitis, right leg; G89.18 Other acute postprocedural pain; I10 Essential (primary) hypertension; Z85.528 Personal history of other malignant neoplasm of kidney; Z90.5 Acquired absence of kidney; E66.9 Obesity, unspecified; Z68.39 Body mass index [BMI] 39.0-39.9, adult
CPT/HCPCS: 28300; 27691; 27606; 64447; 64445; 88304; 93005; 99199; A9270; C1713; C1769; J0690; J1100; J1170; J2250; J2370; J2405; J2704; J3010; J7120

== ENCOUNTER 2023-05-31 13:36 | Outpatient (CLI) | payer OTHER, SELFPAY ==
--- NOTE | ~2023-05-31 | MM_ITS ---
EXAMINATION: MM screening [facility] BI w [facility] HISTORY: Screening mammogram TECHNIQUE: Craniocaudal and mediolateral oblique 3-D tomosynthesis images were obtained and synthetic 2-D images were generated. CAD analysis was submitted and interpreted. COMPARISON: 05/22/2022, 05/03/2021, 01/27/2020 BREAST PARENCHYMAL COMPOSITION: There are scattered areas of fibroglandular density. FINDINGS: RIGHT BREAST: No suspicious mass, calcification, or architectural distortion are identified to sugges t malignancy. There has been no suspicious interval change. LEFT BREAST: Focal asymmetry in the posterior third of the upper outer quadrant of the left breast de monstrates interval increase since the comparison examination. IMPRESSION: 1. Left breast focal asymmetry. 2. Additional mammographic views and possible breast ultrasound are recommended. BI-RADS Category 0: Incomplete: Needs additional imaging evaluation. Reviewed, dictated and finalized at location A. S ORDER AND STOCK CLERK IMPRESSION: 1. Left breast focal asymmetry. 2. Additional mammographic views and possible breast ultrasound are recommended . BI-RADS Category 0: Incomplete: Needs additional imaging evaluation.
== END 2023-05-31 13:37 | disposition home or self-care (01) ==
PROVIDERS: PCP Internal Medicine; Visit Provider Obstetrics & Gynecology
DX: Z12.31 Encounter for screening mammogram for malignant neoplasm of breast (principal); R92.8 Other abnormal and inconclusive findings on diagnostic imaging of breast
CPT/HCPCS: 77063; 77067

== ENCOUNTER → 2023-07-09 09:19 | Outpatient (CLI) | payer OTHER, SELFPAY ==
--- NOTE | ~2023-07-09 | MMUS_ITS ---
EXAMINATION: MM diagnostic [facility] LT w [facility], US breast LT limited HISTORY: Follow-up left breast asymmetry TECHNIQUE: Additional 3-D tomosynthesis images of the left breast were performed and synthetic 2-D im ages were generated. CAD analysis was submitted and interpreted. High resolution Limited left breast ultrasound was performed. COMPARISON: Comparison to multiple prior studies sequentially, with oldest reviewed study dated 02/18. BREAST PARENCHYMAL COMPOSITION: Breast composed of scattered areas of fibroglandular density FINDINGS: MAMMOGRAPHIC FINDINGS: Focal asymmetries in the upper outer quadrant of the left breast are less apparent with spot compress ion views, most likely superimposed fibroglandular content. There are benign calcifications. ULTRASOUND: Limited left breast ultrasound: There are multiple cysts of the left breast. No suspicious masses to suggest malignancy. IMPRESSION: 1. No evidence for malignancy in the left breast. Benign findings. 2. Routine yearly screening mammogram and regular clinical breast examination are recommended. BI-RADS Category 2: Benign finding(s). Reviewed, dictated and finalized at location A. SCAN TECH IMPRESSION: 1. No evidence for malignancy in the left breast. Benign findings. 2. Routine yearly screening mammogram and regular clinical breast examination a re recommended. BI-RADS Category 2: Benign finding(s).
== END ==
PROVIDERS: PCP Internal Medicine; Visit Provider Obstetrics & Gynecology
DX: N64.89 Other specified disorders of breast (principal)
CPT/HCPCS: 76642; 77061; 77065; G0279

== ENCOUNTER 2024-05-20 11:19 | Outpatient (CLI) | payer OTHER, SELFPAY ==
--- NOTE | 2024-05-20 11:30 | ECG_ITS ---
Test Date: 2024-05-20 11:38:39 Measurements Intervals [place] Rate: 74 P: 12 NC: 170 QRS: 27 QRSD: 90 T: 30 QT: 375 QTc: 419 Interpretive Statements SINUS RHYTHM LOW QRS VOLTAGE IN PRECORDIAL LEADS BORDERLINE ECG No previous ECG available for comparison Electronically Signed On 05-20-2024 11:45:39 OUTREACH MANAGER by Mack Jose D.O.
== END 2024-05-20 11:20 | disposition home or self-care (01) ==
LOC: ANHCARD 11:21
PROVIDERS: PCP Internal Medicine; Visit Provider Orthopaedic Surgery
DX: I10 Essential (primary) hypertension (principal)
CPT/HCPCS: 93005

== ENCOUNTER 2024-06-04 12:03 | Outpatient (CLI) | payer OTHER, SELFPAY ==
--- NOTE | ~2024-06-04 | MM_ITS ---
EXAMINATION: MM screening [facility] BI w [facility] HISTORY: Screening TECHNIQUE: Craniocaudal and mediolateral oblique 3-D tomosynthesis images were obtained and synthetic 2-D images were generated. CAD analysis was submitted and interpreted. COMPARISON: Comparison to multiple prior studies sequentially, with oldest reviewed study dated 02/18. BREAST PARENCHYMAL COMPOSITION: Not dense: There are scattered areas of fibroglandular density. FINDINGS: Asymmetric fibroglandular content in the upper outer quadrant of the left breast is stable. There is no evidence of suspicious mass, calcification, or architectural distortion to suggest malig aleksandr in either breast. There has been no suspicious interval change. IMPRESSION: 1. No mammographic evidence of malignancy. 2. Recommend routine screening mammography in one year. BI-RADS Category 1: Negative Reviewed, dictated and finalized at location B. 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
== END 2024-06-04 12:04 | disposition home or self-care (01) ==
LOC: CHSIMG 12:05
PROVIDERS: PCP Internal Medicine; Visit Provider Obstetrics & Gynecology
DX: Z12.31 Encounter for screening mammogram for malignant neoplasm of breast (principal)
CPT/HCPCS: 77063; 77067